=== PATIENT | male | born 1975 | race African-American/Black ===

== ENCOUNTER 2022-06-21 23:29 | Emergency (ER) | payer MEDICAID, OTHER ==
[~2022-06-21] VITALS: Ht 172.7 cm; Wt 94.0 kg
[2022-06-22] MEDS ORDERED: KETOROLAC 15MG/ML VIAL IV ONE (03:15)
[2022-06-22] MEDS ORDERED: DIPHENHYDRAMINE 50MG/ML VIAL IV ONE (03:15)
[2022-06-22] MEDS ORDERED: SODIUM CHLORIDE 0.9% 1,000 ML IV ONE (03:15)
[2022-06-22 05:30] VITALS: BP 152/90
== END 2022-06-22 06:05 | disposition home or self-care (01) ==
LOC: ER 23:29
DX: M25.561 Pain in right knee (principal); M25.461 Effusion, right knee; M13.861 Other specified arthritis, right knee; G43.909 Migraine, unspecified, not intractable, without status migrainosus; J40 Bronchitis, not specified as acute or chronic; I10 Essential (primary) hypertension
CPT/HCPCS: 73562; 96361; 96374; 96375; 99284; J1200; J1885; J7030

== ENCOUNTER 2022-06-29 21:32 | Emergency (ER) | payer MEDICAID, OTHER ==
[~2022-06-29] VITALS: Ht 175.3 cm; Wt 90.0 kg
[2022-06-29 21:40] VITALS: BP 166/101
[2022-06-30] MEDS ORDERED: KETOROLAC 60MG/2ML VIAL IM STA (05:13)
[2022-06-30] MEDS ORDERED: METOCLOPRAMIDE HCL 10MG/2ML VIAL IM ONE (05:15)
[2022-06-30] MEDS ORDERED: NAPR-681 PO (06:21)
[2022-06-30] MEDS ORDERED: MECL-159 PO (06:21)
[2022-06-30] MEDS ORDERED: AMOX-494 PO (06:21)
== END 2022-06-30 06:35 | disposition home or self-care (01) ==
LOC: ER 21:32
DX: R51.9 Headache, unspecified (principal); K02.9 Dental caries, unspecified; F12.10 Cannabis abuse, uncomplicated; I10 Essential (primary) hypertension
CPT/HCPCS: 96372; 99284; J1885; J2765